=== PATIENT | female | born 1960 ===

== ENCOUNTER → 2018-08-06 | Outpatient (CLI) | payer OTHER, MEDICAID ==
--- NOTE | 2018-08-06 11:12 | NOWCEV ---
[facility] OUTPATIENT REHABILITATION SERVICES WHEELCHAIR CLINIC EVALUATION AND LETTER OF JUSTIFICATION Patient Name: MEGAN KRAUS Physician: MD Arnold Butler Date: 07/06/18 Therapist: Sri Baez PT,MSPT Date of : 1960 MR#: [id number] Contact: Megan Kraus Subscriber: MEGAN KRAUS Primary Ins: MEDICARE OUTPATIENT Subscriber #: [id number] EVALUATION FINDINGS Medical history - Megan is a 57y/o female with progressive MS. She has been fully wheelchair bound for some time. She reports that over the past several years she has had a decline in the strength of her trunk and UEs which is limiting her ability to maintain posture in her current seating system. Megan was referred to this clinic by her doctor to have recommendations made for the most medically appropriate modifications to her current seating system to improve her posture, function, and safety. Functional Mobility - Megan is not able to stand or ambulate even with an AD such as a walker due to profound weakness throughout her body. She is dependent for all transfers either utilizing a Lexi lift or a stand pivot transfer in which her lifts her. She is dependent for all supine to/ from sit transitions, rolling and repositioning in bed. Megan is able to independently drive her custom PWC within the home as well as to utilize [employer] to access medical appointments. Megan is dependent on her to reposition in her chair. Intermittently when her R arm falls off her arm rest, she slouches over to the R and is unable to drive or self correct because she does not have the trunk control to correct independently. She relies on her to reposition her trunk. This leads to safety concerns. Head/Trunk control - Megan has absent trunk control. She is not able to sit unsupported and has absent righting reactions in response to LOB due to profound weakness in her trunk and UEs. Sitting supported in her chair she will intermittently lose her balance forward and to the R, and is dependent on her to correct her posture. Megan is able to maintain her head in an upright position, but she does fatigue and utilizes her headrest. Motor involvement - Megna is severely impaired by her MS. She has no volitional movement in her LEs and trunk (MMT 0/5 throughout). She does have extensor tone/spasticity in her LEs, R>L. She has MMT 0/5 in her R hand and shoulder. R elbow ext is 2-/5 and R elbow flexion is 1+/5. Megan is strongest in her L UE where her L shoulder flexion as well as L elbow flexion and extension is 3-/5. L wrist extension is limited to 2-/5. She has enough movement in her L thumb and index finger to drive her chair, but this fatigues when driving on uneven surfaces. Additionally she is having difficulty pressing the buttons to change the settings on her wheelchair due to weakness in her hands. She is not able to move fingers 3-5 on her L hand, and they are contracted into flexion. Megan does not have any active shoulder ER, but can be moved passively to neutral shoulder ER to drive. Posture - Megan's R ilium is higher than her L. Her R shoulder is elevated. She maintains her head in a significantly forward as well as L SB/rotated position. She has a thoracic kyphosis with a R thoracic rib prominence. Her shoulders are rounded and protracted. Sitting in her chair, her R lower ribs rest of her iliac crest due to poor postural support/ control. Skin /Sensation - Megan does not have a h/o skin breakdown. She has impaired kinesthetic awareness. She is incontinent and utilizes a catheter. She has swelling in B feet. Endurance - Megan has very poor endurance. She reports that following driving her chair at a community level to attend medical apts she experiences fatigue in her L hand and has difficulty pressing buttons to utilize the different functions on her chair. ADLs - Megan is dependent on her for all ADLs including dressing, bathing, and self care tasks. She has difficulty feeding herself due to poor postural strength and dec UE strength. She is able to eat at a modified independent level if food is prepared and set up in an accessible manner by her . She does intermittently require assistance for feeding. She utilizes her PWC to access all MRADLs in her home. Cognitive/Social - Megan lives in a fully accessible home with her who is her knifer up caregiver. She is not able to work due to her severe MS. Megan is cognizant and able to make her own medical decisions. Current wheelchair - Megan is currently utilizing a Permobile M300 which is 3 y/ o. She recently received a new Jay2 deep contoured cushion to improve her postural support and decrease pressure on her coccyx where she was experiencing pain. She is currently utilizing a non-contoured backrest which is not providing her with adequate postural support/ control to maintain sitting upright in her chair. With her current backrest, Megan frequently loses her balance to her R and forward and is dependent of her to correct her posture. This leads to significant safety concerns when driving her chair and when riding in the car. Megan does not have an arm trough for her RUE. She reports that her R arm intermittently falls off the arm rest causing her to lose her balance to the R. She is not able to correct this without full assistance from her , again leading to safety concerns. MEDICAL and FUNCTIONAL NEED/OBJECTIVE To provide Megan with modifications to her seat back and arm rest to allow for improved posture, function, and safety when driving her chair within her home due to recent functional decline. PRIMARY FUNCTIONAL LIMITATION (G Code) * Mobility CURRENT STATUS OF PRIMARY FUNCTIONAL LIMITATION (Severity Modifier) * At least 80 percent but less than 100 percent impaired, limited or restricted (CM) GOAL STATUS OF PRIMARY FUNCTIONAL LIMITATION (Severity Modifier) * At least 80 percent but less than 100 percent impaired, limited or restricted (CM) DISCHARGE STATUS OF PRIMARY FUNCTIONAL LIMITATION (Severity Modifier) * At least 80 percent but less than 100 percent impaired, limited or restricted (CM) EQUIPMENT RECOMMENDATIONS AND JUSTIFICATIONS The following recommendations are believed to be the most cost effective way to meet the patients medical and functional needs. * Posterior positioning backrest with swing away laterals: Needed to replace Megan current back rest which is no longer providing her with adequate postural support and control due to a progression of her MS over the past several years. In her current back rest, Megan frequently experiences anterior and R LOB, and requires assistance from her to reposition her in an upright position in her chair. This poses a significant safety concern. An optimally configured backrest with laterals will provide Megan with the appropriate postural support and control to allow her to maintain upright posture in her chair in order to promote safety, improve her ability to drive her chair with less fatigue by improving positioning of her UEs and trunk, and allow for improved pressure distribution. It will also improve her respiratory function by improving posture. With her current backrest her trunk is collapsing to the R, decreasing her respiratory capacity. An off the shelf backrest would not provide Megan with adequate postural control due to her profound truncal weakness and would not be able to correct for her significant postural asymmetries. * Shoulder harness with strap guides: Needed to provide Megan with postural support and control to prevent her from experiencing an anterior LOB. This is necessary as Megan's postural/righting reactions are absent and she is unable to self correct from LOB. This is especially necessary for safety when riding in the car to attend medical appointments. * Padded arm trough with adapter: Needed to provide Megan with R UE support when in her chair. This is necessary because without the arm trough her arm slides off her arm rest causing LOB. She is unable to correct this LOB without total assistance from her . The arm trough will provide Megan with safety by maintaining her R UE in an appropriate position. This will prevent LOB and allow her to maintain upright posture without physical assistance. The arm trough must be padded to prevent skin breakdown as Megan is unable to volitionally move her R UE to reposition. These recommendations are based on the likelihood that Megan will require the use of a custom wheelchair and seating system for all access to MRADLs in her home for the rest of her life. If you have any questions or concerns regarding the stated recommendations, please feel free to contact the therapist at . Thank you for your cooperation in obtaining the necessary equipment for this patient. MARYCARMEN Egan
== END ==
PROVIDERS: ATTEND Family Medicine
DX: G35 Multiple sclerosis (principal); Z99.3 Dependence on wheelchair
CPT/HCPCS: 97162; G8978; G8979; G8980